=== PATIENT | male | born 1970 | race Hispanic/Latino ===

== ENCOUNTER 2017-12-27 05:49 | Emergency (ER) | payer OTHER, SELFPAY ==
[2017-12-27 06:30] LABS: Absolute Lymphocytes (CBC) 3.1 K/uL (0.7-4.9); Absolute Monocytes 0.5 K/uL (0.1-1.3); Absolute Neutrophil 6.1 K/uL (1.8-8.0); Basophils % 1.2 % (0-1.3); Eosinophils % 1.7 % (0-4.4); Hematocrit 42.2 % (39.6-49.0); Lymphocytes % 31.1 % (15.3-44.8); MCH 27.8 pg (27.0-35.0); MCV 85.4 fL (80-100); MPV 10.4 fL (7.6-11.3); Monocytes % 5.4 % (3.3-12.3); RBC Red Blood Cell Count 4.95 M/uL (4.33-5.43)
--- NOTE | 2017-12-27 06:34 | EKG ---
Test Date: 2017-12-27 Test Time: 05:56:31 Skip Hoist Engineer: APPLE MEASUREMENT RESULTS: Intervals: Rate: 75 MN: 144 QRSD: 118 QT: 388 QTc: 433 Vest: P: 45 MN: 144 QRS: 78 T: 21 INTERPRETIVE STATEMENTS: Normal sinus rhythm Hsikn-Fgyymxtkd-Nefpi Abnormal ECG No previous ECG available for comparison Electronically Signed On 12-27-17 06:33:41 CDT by Alonso Smith
[2017-12-27 06:42] LABS: Protime INR 1.09
[2017-12-27 06:51] LABS: Bicarbonate 26 mEq/L (21-31); Glucose Level 93 mg/dL (65-120); Potassium 3.5 mEq/L (3.6-5.0); Sodium Level 140 mEq/L (135-145)
[2017-12-27 06:57] LABS: ALT/SGPT 34 IU/L (10-60); AST/SGOT 29 IU/L (10-42); Albumin 4.3 g/dL (3.2-5.5); Alkaline Phosphatase 64 IU/L (42-121); BUN Blood Urea Nitrogen 18 mg/dL (6-20); Bilirubin Direct 0.1 mg/dL (0-0.2); Bilirubin Total 0.9 mg/dL (0.3-1.2); Creatine Phosphokinase 184 IU/L (22-269); Glomerular Filtration Rate > 90 mL/min (=/>90); Magnesium 1.8 mg/dL (1.8-2.5); Protein, Total 7.1 g/dL (6.0-8.3)
[2017-12-27 07:01] LABS: CKMB Creatine Kinase MB 2.7 ng/ml (0.3-4.0)
--- NOTE | 2017-12-27 09:49 | ER ---
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 Transition of care: patient was not received from another setting of care. Onset of symptoms was December 27, 2017. Care prior to arrival: None. 05:58 Method Of Arrival: Ambulatory bb 05:58 Acuity: LUCIANO 2 bb Historical: - Allergies: 06:00 No Known Allergies; bb - Home Meds: 06:00 lisinopril 5 mg Oral tab 1 tab once daily [Active]; metformin 500 mg Oral Tb24 1 tab 2 bb times per day [Active]; - PMHx: 06:00 Hypertension; Diabetes - NIDDM; WPW; bb - PSHx: 06:00 None; bb - Immunization history:: Adult Immunizations up to date, Flu vaccine is up to date. - Social history:: Smoking status: Patient/guardian denies using tobacco. Screenin:20 Abuse screen: Denies threats or abuse. Denies injuries from another. Nutritional lk1 screening: No deficits noted. Tuberculosis screening: No symptoms or risk factors identified. Fall Risk None identified. Assessment: 06:00 General: Appears in no apparent distress. Behavior is calm, cooperative, appropriate lk1 for age. Pain: Complains of pain in chest Pain does not radiate. Pain currently is 3 out of 10 on a pain scale. at worst was 8 out of 10 on a pain scale. Quality of pain is described as sharp, stabbing, Pain began 1 day ago. Is intermittent. Neuro: Level of Consciousness is awake, alert, obeys commands, Oriented to person, place, time, situation, Appropriate for age. Cardiovascular: Heart tones S1 S2 present Capillary refill is brisk. Respiratory: Airway is patent Respiratory effort is even, unlabored, Respiratory pattern is regular, symmetrical, Breath sounds are clear bilaterally. GI: No signs and/or symptoms were reported involving the gastrointestinal system. : No signs and/or symptoms were reported regarding the genitourinary system. EENT: No signs and/or symptoms were reported regarding the EENT system. Derm: No signs and/or symptoms reported regarding the dermatologic system. Musculoskeletal: No signs and/or symptoms reported regarding the musculoskeletal system. 07:00 Reassessment: Pt is resting in bed with no signs of distress noted, respirations even jtb and unlabored, pain reported at <1. 08:20 Reassessment: No changes from previously documented assessment. Patient is alert, jtb oriented x 3, equal unlabored respirations, skin warm/dry/pink. 09:20 Reassessment: Patient is alert, oriented x 3, equal unlabored respirations, skin jtb warm/dry/pink. Patient denies pain at this time. Vital Signs: 06:00 BP 132 / 94; Pulse 76; Resp 18 S; Temp 97.4(O); Pulse Ox 98% on R/A; Weight 90.72 kg bb (R); Height 5 ft. 8 in. (172.72 cm) (R); Pain 3/10; 07:21 BP 125 / 85; Pulse 69; Resp 17; Pulse Ox 95% on R/A; mh5 08:20 BP 113 / 81; Pulse 66; Resp 16 S; Pulse Ox 95% on R/A; Pain 0/10; jtb 09:00 BP 119 / 81; Pulse 58; Resp 16 S; Pulse Ox 96% on R/A; jl7 09:37 BP 117 / 82; Pulse 57; Resp 15; Pulse Ox 97% on R/A; jl7 06:00 Body Mass Index 30.41 (90.72 kg, 172.72 cm) bb ED Course: 05:50 Patient arrived in ED. al2 05:59 Triage completed. bb 06:00 Arm band placed on Patient placed in an exam room, on a stretcher, on pvc monitor, bb on pulse oximetry. EKG completed in triage. Results shown to MD. 06:00 Inserted saline lock: 20 gauge in right antecubital area, using aseptic technique. lk1 Blood collected. Patient maintains SpO2 saturation greater than 95% on room air. 06:04 Danika Campbell, JAKE is Primary Nurse. lk1 06:05 Patricia Rapp FNP-C is [facility]. kb 06:05 Henry Eugene MD is Attending Physician. kb 06:21 Patient has correct armband on for positive identification. Bed in low position. Call lk1 light in reach. Side rails up X2. nuclear monitoring technician on. Pulse ox on. NIBP on. 09:00 Repeat lab(s) drawn. by ED staff, sent to lab. EKG done, by ED staff, reviewed by stephanie ENGEL. 09:55 No provider procedures requiring assistance completed. IV discontinued, intact, stephanie bleeding controlled, No redness/swelling at site. Pressure dressing applied. Administered Medications: No medications were administered Outcome: 09:48 Discharge ordered by . kb 09:55 Attestation : I agree with everything documented by Casper Welch, Student Nurse. stephanie 09:55 Discharged to home ambulatory. 09:55 Condition: stable 09:55 Discharge instructions given to patient, Instructed on discharge instructions, follow up and referral plans. Demonstrated understanding of instructions, follow-up care. 09:56 Patient left the ED. stephanie Signatures: Patricia Rapp FNP-C FNP-Ckb Ballard, Brenda, RN RN Danika Sanabria, RN RN lk1 Polina Broussard Alex Han, RN RN dk7 Hallie Vega James jtb
--- NOTE | 2017-12-27 09:50 | EDPHYS ---
Physician Documentation [facility] Name: José Hicks Age: 47 yrs Sex: Male : 1970 Arrival Date: 12/27/2017 Time: 05:50 Bed 18 Private MD: ED Physician Henry Eugene HPI: 12/27 06:10 This 47 yrs old Male presents to ER via Ambulatory with complaints of Chest kb Pain. 06:10 The patient or guardian reports chest pain that is located primarily in the substernal kb area. Onset: last night. The pain radiates to right side of chest. Associated signs and symptoms: The patient has no apparent associated signs or symptoms. The chest pain is described as aching. Duration: The patient or guardian reports a single episode, that is still ongoing. Modifying factors: The symptoms are alleviated by nothing. the symptoms are aggravated by nothing. Severity of pain: At its worst the pain was mild in the emergency department the pain is unchanged. The patient has experienced similar episodes in the past, a few times, and the symptoms today are exactly the same. The patient has not recently seen a physician. Pt states he started having pain at the sternum last night while working. Pain radiates to right side of chest. Denies any other symptoms. States he has had the pain in the past, but it normally goes away on its own. Reports intermittent tenderness to chest where the pain radiates. . Historical: - Allergies: 06:00 No Known Allergies; bb - Home Meds: 06:00 lisinopril 5 mg Oral tab 1 tab once daily [Active]; metformin 500 mg Oral Tb24 1 tab 2 bb times per day [Active]; - PMHx: 06:00 Hypertension; Diabetes - NIDDM; WPW; bb - PSHx: 06:00 None; bb - Immunization history:: Adult Immunizations up to date, Flu vaccine is up to date. - Social history:: Smoking status: Patient/guardian denies using tobacco. ROS: 06:10 Constitutional: Negative for fever, chills, and weight loss, ENT: Negative for injury, kb pain, and discharge, Neck: Negative for injury, pain, and swelling, Respiratory: Negative for shortness of breath, cough, wheezing, and pleuritic chest pain, Abdomen/GI: Negative for abdominal pain, nausea, vomiting, diarrhea, and constipation, Back: Negative for injury and pain, : Negative for injury, bleeding, discharge, and swelling, MS/Extremity: Negative for injury and deformity, Skin: Negative for injury, rash, and discoloration, Neuro: Negative for headache, weakness, numbness, tingling, and seizure. 06:10 Cardiovascular: Positive for chest pain, Negative for edema, orthopnea, palpitations, paroxysmal nocturnal dyspnea. Exam: 06:10 Constitutional: This is a well developed, well nourished patient who is awake, alert, kb and in no acute distress. Head/Face: Normocephalic, atraumatic. ENT: Nares patent. No nasal discharge, no septal abnormalities noted. Tympanic membranes are normal and external auditory canals are clear. Oropharynx with no redness, swelling, or masses, exudates, or evidence of obstruction, uvula midline. Mucous membranes moist. Neck: Trachea midline, no thyromegaly or masses palpated, and no cervical lymphadenopathy. Supple, full range of motion without nuchal rigidity, or vertebral point tenderness. No Meningismus. Chest/axilla: Normal chest wall appearance and motion. Nontender with no deformity. No lesions are appreciated. Cardiovascular: Regular rate and rhythm with a normal S1 and S2. No gallops, murmurs, or rubs. Normal PMI, no JVD. No pulse deficits. Respiratory: Lungs have equal breath sounds bilaterally, clear to auscultation and percussion. No rales, rhonchi or wheezes noted. No increased work of breathing, no retractions or nasal flaring. Abdomen/GI: Soft, non-tender, with normal bowel sounds. No distension or tympany. No guarding or rebound. No evidence of tenderness throughout. Skin: Warm, dry with normal turgor. Normal color with no rashes, no lesions, and no evidence of cellulitis. MS/ Extremity: Pulses equal, no cyanosis. Neurovascular intact. Full, normal range of motion. Neuro: Awake and alert, GCS 15, oriented to person, place, time, and situation. Cranial nerves II-XII grossly intact. Motor strength 5/5 in all extremities. Sensory grossly intact. Cerebellar exam normal. Normal gait. Vital Signs: 06:00 BP 132 / 94; Pulse 76; Resp 18 S; Temp 97.4(O); Pulse Ox 98% on R/A; Weight 90.72 kg bb (R); Height 5 ft. 8 in. (172.72 cm) (R); Pain 3/10; 07:21 BP 125 / 85; Pulse 69; Resp 17; Pulse Ox 95% on R/A; mh5 08:20 BP 113 / 81; Pulse 66; Resp 16 S; Pulse Ox 95% on R/A; Pain 0/10; jtb 09:00 BP 119 / 81; Pulse 58; Resp 16 S; Pulse Ox 96% on R/A; jl7 09:37 BP 117 / 82; Pulse 57; Resp 15; Pulse Ox 97% on R/A; jl7 06:00 Body Mass Index 30.41 (90.72 kg, 172.72 cm) bb MDM: 06:05 Patient medically screened. kb 06:10 The patient was not given aspirin in the Emergency Department. Patient reports taking kb aspirin within the past 24 hours. SHRUTHI Risk Score: 1 - ASA use in past 7 days. Data reviewed: vital signs, nurses notes. Data interpreted: Pulse oximetry: on room air is 98 %. Interpretation: normal. ED course: Heart Score - 2 points. 09:41 Counseling: I had a detailed discussion with the patient and/or guardian regarding: the kb historical points, exam findings, and any diagnostic results supporting the discharge/admit diagnosis, lab results, radiology results, the need for outpatient follow up, a family practitioner, to return to the emergency department if symptoms worsen or persist or if there are any questions or concerns that arise at home. Special discussion: Based on the patient's history, exam, and Dx evaluation, there is no indication for emergent intervention or inpatient Tx. It is understood by the patient/guardian that if the Sx's persist or worsen they need to return immediately for re-evaluation. 12/27 06:04 Order name: Basic Metabolic Panel 1 12/27 06:04 Order name: BNP 1 12/27 06:04 Order name: CBC with Diff 1 12/27 06:04 Order name: Ckmb 1 12/27 06:04 Order name: CPK 1 12/27 06:04 Order name: LFT's [facility] 12/27 06:04 Order name: Magnesium [facility] 12/27 06:04 Order name: PT-INR 12/27 06:04 Order name: Ptt, Activated [facility] 12/27 06:04 Order name: Troponin (emerg Dept Use Only) [facility] 12/27 06:33 Order name: CBC with Automated Diff; Complete Time: 06:36 EDMS 12/27 06:43 Order name: Protime (+INR); Complete Time: 06:44 EDMS 12/27 06:43 Order name: PTT, Activated Partial Thromb; Complete Time: 06:44 EDMS 12/27 06:51 Order name: Basic Metabolic Panel; Complete Time: 07:02 EDMS 12/27 06:04 Order name: XRAY Chest (1 view) [facility] 12/27 06:04 Order name: EKG; Complete Time: 06:06 [facility] 12/27 06:04 Order name: Cardiac monitoring; Complete Time: 07:05 [facility] 12/27 06:04 Order name: EKG - Nurse/Tech; Complete Time: 06:36 [facility] 12/27 06:04 Order name: IV Saline Lock; Complete Time: 08:05 [facility] 12/27 06:04 Order name: Labs collected and sent; Complete Time: 08:05 [facility] 12/27 06:04 Order name: O2 Per Protocol; Complete Time: 06:36 [facility] 12/27 06:54 Order name: Troponin (Emerg Dept Use Only); Complete Time: 06:58 EDMS 12/27 06:58 Order name: Liver (Hepatic) Function; Complete Time: 07:02 EDMS 12/27 06:58 Order name: Creatine Phosphokinase; Complete Time: 07:02 EDMS 12/27 06:58 Order name: Magnesium; Complete Time: 07:02 EDMS 12/27 07:01 Order name: CKMB Creatine Kinase MB; Complete Time: 07:02 EDMS 12/27 07:02 Order name: BNP B-Type Natriuretic Peptide; Complete Time: 07:02 EDMS 12/27 09:01 Order name: EKG; Complete Time: 09:02 kb 12/27 09:01 Order name: Troponin (emerg Dept Use Only) 12/27 09:37 Order name: Troponin (Emerg Dept Use Only); Complete Time: 09:41 EDMS 12/27 06:04 Order name: O2 Sat Monitoring; Complete Time: 06:36 lk 12/27 09:01 Order name: EKG - Nurse/Tech; Complete Time: 09:34 kb Administered Medications: No medications were administered Disposition: 19:30 Co-signature as Attending Physician, Henry Eugene MD. Disposition: 12/27/17 09:48 Discharged to Home. Impression: Chest pain, unspecified. - Condition is Stable. - Discharge Instructions: Nonspecific Chest Pain, [id number]. - Medication Reconciliation Form, Thank You Letter, Antibiotic Education, Prescription Opioid Use form. - Follow up: Emergency Department; When: As needed; Reason: Worsening of condition. Follow up: Private Physician; When: 2 - 3 days; Reason: Recheck today's complaints, Continuance of care, Re-evaluation by your physician. Signatures: Dispatcher [employer] EDMS Patricia Rapp, PUBLIC RELATIONS ASSISTANT-C PUBLIC RELATIONS ASSISTANT-Silvina Mitchell, RN RN bb Danika Campbell RN RN lk1 Alex Doyle RN RN jl7 Henry Eugene MD MD
--- NOTE | 2017-12-27 11:49 | RAD REPORT ---
EXAM DESCRIPTION: RAD - Chest Single View - 12/27/2017 6:39 am CLINICAL HISTORY: Chest pain. COMPARISON: None. FINDINGS: Portable technique limits examination quality. The lungs are grossly clear. The heart is normal in size. No displaced fractures. IMPRESSION: No acute intrathoracic process suspected.
--- NOTE | 2017-12-27 17:36 | EKG ---
Test Date: 2017-12-27 Test Time: 09:09:21 Traffic Operations Manager: SRIDEVI MEASUREMENT RESULTS: Intervals: Rate: 59 MS: 144 QRSD: 122 QT: 426 QTc: 421 Bandana: P: 51 MS: 144 QRS: 61 T: 15 INTERPRETIVE STATEMENTS: Sinus bradycardia [id number] Abnormal ECG Compared to ECG 12/27/2017 05:56:31 Sinus rhythm no longer present Electronically Signed On 12-27-17 17:36:17 CDT by Alonso Smith
== END 2017-12-27 09:56 | disposition home or self-care (01) ==
LOC: ER 05:49
DX: R07.9 Chest pain, unspecified (principal); I10 Essential (primary) hypertension; E11.9 Type 2 diabetes mellitus without complications
CPT/HCPCS: 36415; 71045; 80048; 80076; 82550; 82553; 83735; 83880; 84484; 85025; 85610; 85730; 93005; 99285